=== PATIENT | female | born 1990 | race Caucasian/White ===

== ENCOUNTER 2023-12-25 12:20 | Emergency (ER) | payer SELFPAY ==
[~2023-12-25] VITALS: Ht 154.9 cm; Wt 86.0 kg
[2023-12-25 12:30] VITALS: O2SAT 100
[2023-12-25 12:40] VITALS: BP 109/76; PULSE 83; RESP 18; TEMP 98.4; O2SAT 100
[2023-12-25] MEDS ORDERED: TETANUS, DIPHTHERIA, PERTUSSIS VAC/PF 0.5ML (>10YR OLD) IM ONE (13:00)
== END 2023-12-25 13:27 | disposition home or self-care (01) ==
LOC: ER 12:41
DX: S61.307A Unspecified open wound of left little finger with damage to nail, initial encounter (principal); Z88.6 Allergy status to analgesic agent; Z98.890 Other specified postprocedural states; X58.XXXA Exposure to other specified factors, initial encounter; Y93.89 Activity, other specified; Y92.89 Other specified places as the place of occurrence of the external cause; Y99.8 Other external cause status
CPT/HCPCS: 99281